=== PATIENT | female | born 1935 | race Caucasian/White ===

== ENCOUNTER → 2019-08-19 09:30 | Outpatient (CLI) | payer MEDICARE, MEDICAID, SELFPAY ==
--- NOTE | 2019-08-19 09:51 | XR_ITS ---
PROCEDURE: XR KNEE RT 3V CLINICAL INDICATION: right knee pain COMPARISON: No exams were available for comparison FINDINGS: Are severe osteoarthritic changes of the medial compartment and patellofemoral joint with mild osteoarthritis of the lateral compartment. There is mild lateral tibial translation. There are scattered rounded small calcific densities about the knee anteriorly consistent with phleboliths. Arterial calcification noted IMPRESSION: Osteoarthritic changes as described above Dictated by: Pan Campbell MD 08/19/2019 18:55 Electronically signed by Pan Campbell MD in [place] 08/19/2019 18:55
--- NOTE | 2019-08-19 09:51 | XR_ITS ---
PROCEDURE: XR KNEE LT 3V CLINICAL INDICATION: left knee pain COMPARISON: XR KNEE RT 3V from 08/19/2019 FINDINGS: No fracture or dislocation. No lytic or blastic change. There is normal mineralization. There are severe osteoarthritic changes of the patellofemoral joint and moderate to severe osteoarthritic changes of the medial compartment with mild osteoarthritis of the lateral compartment. Central subcortical lucency is present with slightly sclerotic margin at the proximal tibia in the inner spinous region and may be related to an area osteochondrosis. MRI or CT may confirm. Other findings:None. IMPRESSION: Moderate to severe osteoarthritic change with possible osteochondrosis of the proximal tibia in the interspinous region Dictated by: Pan Campbell MD 08/19/2019 18:57 Electronically signed by Pan Campbell MD in [facility] 08/19/2019 18:57
== END ==
PROVIDERS: PCP Family Medicine; Visit Provider Orthopaedic Surgery
DX: M25.561 Pain in right knee (principal); M25.562 Pain in left knee
CPT/HCPCS: 73562

== ENCOUNTER → 2019-09-12 08:40 | Outpatient (CLI) | payer MEDICARE, MEDICAID, SELFPAY ==
--- NOTE | 2019-09-12 08:49 | XR_ITS ---
PROCEDURE: XR SHOULDER LT MIN 2V CLINICAL INDICATION: left shoulder pain COMPARISON: No exams were available for comparison FINDINGS: There are mild osteoarthritic changes of the glenohumeral joint. There is mild subacromial stenosis. No fracture or dislocation. No lytic or blastic change. Cardiac pacemaker device is present. IMPRESSION: Minimal osteoarthritic change of the glenohumeral joint Dictated by: Pan Campbell MD 09/12/2019 13:06 Electronically signed by Pan Capmbell MD in [place] 09/12/2019 13:06
--- NOTE | 2019-09-12 08:49 | XR_ITS ---
PROCEDURE: XR SHOULDER RT MIN 2V CLINICAL INDICATION: right shoulder pain COMPARISON: No exams were available for comparison FINDINGS: There are mild osteoarthritic changes of the acromioclavicular and glenohumeral joint. There is mild spurring at the AC joint projecting superiorly with mild subacromial stenosis. No fracture or dislocation. No lytic or blastic change. IMPRESSION: Mild osteoarthritis of the AC joint and glenohumeral joint with mild subacromial stenosis Dictated by: Pan Campbell MD 09/12/2019 13:06 Electronically signed by Pan Campbell MD in [place] 09/12/2019 13:06
== END ==
PROVIDERS: PCP Family Medicine; Visit Provider Orthopaedic Surgery
DX: M25.511 Pain in right shoulder (principal); M25.512 Pain in left shoulder
CPT/HCPCS: 73030

== ENCOUNTER 2019-11-26 17:30 | Emergency (ER) | payer MEDICARE, MEDICAID, SELFPAY ==
[2019-11-26] VITALS (8 sets, daily range): BP systolic 98–132; BP diastolic 51–85; PULSE 77–101; RESP 16–24; TEMP 36.6–36.9; O2SAT 97–99; BMI 31.8
--- NOTE | 2019-11-26 17:38 | HMH.EDGENADL ---
ED Disposition Clinical Impression: Diffuse lymphadenopathy Dyspnea Qualifiers: Dyspnea type: shortness of breath Qualified Code(s): R06.02 - Shortness of breath Disposition: Xfer SNF Condition on Discharge: Fair Instructions: DI for Shortness of Breath Additional Instructions: Follow-up with Dr. Ambrose and with Dr. Garcia. Call tomorrow. Continue oxygen. Measure pulse oximetry twice daily. Contact physician if pulse ox is below 90%. Referrals: Provider,Referral, MD [Primary Care Provider] - - Critical Care Critical Care Time: No Attestation: On 11/26/19, the high probability of a clinically significant, sudden or life threatening deterioration of the following system(s) required my full and direct attention, intervention and personal management. The time I documented below is in addition to time spent performing reported procedures but includes the following listed in this critical care notation. Medical Decision Making - Craig Inquiry Pt receiving controlled substance: No Vital Signs: 11/26/19 17:30 11/26/19 17:55 11/26/19 18:14 Temperature 98.4 F Temperature Source Oral Pulse Rate [Right Radial] 101 H 91 H Respiratory Rate 24 24 Blood Pressure [Right Arm] 132/68 115/66 Blood Pressure Mean [Right Arm] 89 82 Blood Pressure Source [Right Arm] Automatic Cuff Automatic Cuff Blood Pressure Position [Right Arm] Sitting Sitting 02 Sat by Pulse Oximetry 97 97 98 Oxygen Delivery Method Nasal Cannula Nasal Cannula Nasal Cannula Oxygen Flow Rate (LPM) 3 3 3 11/26/19 18:28 Temperature Temperature Source Pulse Rate [Right Radial] 90 Respiratory Rate Blood Pressure [Right Arm] 105/56 L Blood Pressure Mean [Right Arm] 72 Blood Pressure Source [Right Arm] Automatic Cuff Blood Pressure Position [Right Arm] Sitting 02 Sat by Pulse Oximetry 98 Oxygen Delivery Method Nasal Cannula Oxygen Flow Rate (LPM) 3 - Lab Data Lab Results 11/26/19 17:59: Urine Color Yellow, Urine Appearance Clear, Urine pH 5.5, Ur Specific [place] 1.020, Urine Protein Negative, Urine Glucose (UA) Negative, Urine Ketones Negative, Urine Blood Negative, Urine Nitrate Negative, Urine Bilirubin Negative, Urine Urobilinogen 0.2, Ur Leukocyte Esterase Negative, Urine WBC Occasional, Ur Squamous Epith Cells Occasional, Urine Bacteria Trace 11/26/19 18:03: WBC 4.2 L, RBC 4.03 L, Hgb 11.4 L, Hct 37.1, MCV 92.1, MCH 28.2, MCHC 30.6 L, RDW 18.6 H, Plt Count 93 L, MPV 9.7, Neut % (Auto) 55.9, Lymph % (Auto) 30.8, [place] % (Auto) 8.1, Eos % (Auto) 3.3, Baso % (Auto) 1.9, Neut # (Auto) 2.4, Lymph # (Auto) 1.3, [place] # (Auto) 0.3, Eos # (Auto) 0.1, Baso # (Auto) 0.1 11/26/19 18:03: Sodium 138, Potassium 4.5, Chloride 104, Carbon Dioxide 29, Anion Gap 9.5, BUN 18 H, Creatinine 0.90, Estimated Creat Clear 61, Estimated GFR 60, Est GFR ( Amer) 72, Glucose 131 H, Calcium 9.3, Total Bilirubin 0.7, AST 35, ALT 12, Alkaline Phosphatase 150 H, Total Protein 6.8, Albumin 3.6, Globulin 3.2, Albumin/Globulin Ratio 1.1 11/26/19 18:03: Troponin I < 0.01, NT-Pro-B Natriuret Pep 5250 H Result diagrams: 11/26/19 18:03 11/26/19 18:03 Orders (Tests/Meds): ED MEDICATIONS Discontinued Medications Generic Name Dose Route Start Last Admin Trade Name Freq PRN Reason Stop Dose Admin Ioversol 60 ml 11/26/19 19:29 Rad-Optiray 350 100ml Vial IV 11/26/19 19:30 ONCE ONE Protocol Sodium Chloride 10 ml 11/26/19 19:29 Rad-Saline Flush 10ml Syringe IV 11/26/19 19:30 ONCE ONE Sodium Chloride 50 ml 11/26/19 19:29 Rad-Ns 50ml Vial IV 11/26/19 19:30 ONCE ONE ORDERS Category Date Time Status CTA Chest [CT angio chest] Stat Cat Scan 11/26/19 18:39 Taken XR chest portable Stat Exams 11/26/19 17:44 Taken Troponin I Q3H Lab 11/26/19 21:00 Ordered Troponin I Q3H Lab 11/27/19 00:00 Ordered - Radiology Data #1 Image(s): Chest Image Reviewed: Yes I reviewed the patient's radiology image Small r
--- NOTE | 2019-11-26 17:44 | XR_ITS ---
PROCEDURE: XR CHEST PORTABLE CLINICAL HISTORY: SOA, shortness of air, shortness of breath COMPARISON: CT ANGIO CHEST from 11/26/2019 FINDINGS: Mild cardiomegaly without failure. There has been a prior median sternotomy with mitral valve replacement. There is mild prominence of the mediastinum. Bipolar pacemaker is present from left subclavian approach. Blunting of the right CP angle consistent with small effusion with increased density in the right lung base suggesting infiltrate or atelectatic change. No acute bony abnormalities. IMPRESSION: 1. Small right effusion with right basilar airspace disease. 2. Cardiomegaly with mildly prominent mediastinum, consider CT for further evaluation. Dictated by: Pan Campbell MD 11/27/2019 06:06 Electronically signed by Pan Campbell MD in [place] 11/27/2019 06:06
--- NOTE | 2019-11-26 17:54 | PC.NURSE ---
Rad at [facility]
[2019-11-26 18:05] LABS: Microscopic, Urine URINE MICROSCOPIC (MICROSCOPIC)
[2019-11-26 18:07] LABS: Appearance,Urine CLEAR (Clear); Bilirubin,Urine Negative (Negative); Blood, Urine Negative (Negative); Color,Urine YELLOW (Yellow); Glucose,Urine (UA) Negative (Negative); Ketones,Urine Negative (Negative); Leukocyte Esterase,Urine Negative (Negative); Nitrate,Urine Negative (Negative); PH,Urine 5.5 (5.0-8.5); Protein,Urine Negative (Negative); Urobilinogen,Urine 0.2 EU/dl (0.2)
--- NOTE | 2019-11-26 18:10 | ECG_ITS ---
APPROVED REPORT Exam: Resting ECG HR:93 bpm ECG Measurements Heart Rate 93 AXES QRSd 116 QRS 37 QT 358 T -29 QTc 445 <Conclusion> Undetermined rhythm Incomplete right bundle branch block Nonspecific ST and T wave abnormality Abnormal ECG Electronically signed by : Robert Gonzalez, 11/28/2019 06:34:32
[2019-11-26 18:11] LABS: Basophils # 0.1 K/mm3 (0-0.2); Basophils % 1.9 % (0.1-2.0); Eosinophils # 0.1 K/mm3 (0.0-0.4); Eosinophils % 3.3 % (0.1-12.0); Hematocrit 37.1 % (37.0-47.0); Hemoglobin 11.4 g/dL (12.2-16.2); Lymphocytes # 1.3 K/mm3 (0.7-4.5); Lymphocytes % 30.8 % (10-50); Mean Corpuscular HGB Conc 30.6 g/dL (31.8-35.4); Mean Corpuscular Hemoglobin 28.2 pg (27.0-31.2); Mean Corpuscular Volume 92.1 fl (81-99); Mean Platelet Volume 9.7 fl (7.4-10.4); Monocytes # 0.3 K/mm3 (0.1-1.0); Monocytes % 8.1 % (1.7-9.3); Neutrophils # 2.4 K/mm3 (1.8-7.8); Neutrophils % 55.9 % (37.0-80.0); Platelet Count 93 K/mm3 (142-424); Red Blood Count 4.03 M/mm3 (4.20-5.40); Red Cell Distribution Width 18.6 % (11.5-17.5); White Blood Count 4.2 K/mm3 (4.8-10.8)
[2019-11-26 18:18] LABS: Chloride 104 mmol/L (98-107); Potassium 4.5 mmoL/L (3.5-5.1); Sodium 138 mmol/L (136-145)
[2019-11-26 18:18] LABS: Squamous Epithelial Cell,Urine Occasional #/hpf (0-5); WBC,Urine Occasional #/hpf (0-3)
[2019-11-26 18:19] LABS: Bacteria,Urine Trace /lpf
[2019-11-26 18:20] LABS: Alanine Aminotransferase 12 U/L (12-78); Aspartate Amino Transferase 35 U/L (14-36); Blood Urea Nitrogen 18 mg/dl (7-17); Creatinine Clearance Estimated 61 mL/min (50-200); Estimated Glomerular Filt Rate 60 ml/min (>60); GFR (African American) 72 ML/MIN (>60)
[2019-11-26 18:21] LABS: Albumin Level 3.6 g/dl (3.5-5.0); Albumin/Globulin Ratio 1.1 (1.1-1.8); Alkaline Phosphatase 150 U/L (38-126); Anion Gap 9.5 mEq/L (5-15); Bilirubin,Total 0.7 mg/dl (0.2-1.3); Calcium 9.3 mg/dl (8.4-10.2); Carbon Dioxide 29 mmol/L (22.0-30.0); Globulin 3.2 g/dL (1.3-3.2); Glucose 131 mg/dl (74-100); Total Protein,Serum 6.8 g/dl (6.3-8.2)
[2019-11-26 18:29] LABS: NT Pro Brain Natriuretic Pep. 5250 pg/mL (0-450)
--- NOTE | 2019-11-26 18:39 | CT_ITS ---
PROCEDURE: CT ANGIO CHEST CLINCIAL INDICATION: soa Shortness of air COMPARISON: No exams were available for comparison TECHNIQUE: IV Contrast: 70ML OPTIRAY 350 Axial images obtained with sagittal and coronal reformats. All CT scans at the facility use one or more dose reduction, viz: automated exposure control, ma/kV adjustment per patient size (including targeted exams where dose is matched to indication, i.e. head), or iterative reconstruction technique. FINDINGS: HEART AND MEDIASTINAL STRUCTURES: There is extensive adenopathy in both axilla, mediastinum, supraclavicular region, and [place]. There is enlargement of the main pulmonary artery and right and left main pulmonary artery. No evidence of pulmonary embolus, aortic aneurysm, or aortic dissection. Prior stenotic me with mitral valve replacement LUNGS AND PLEURAL SPACES: There is a small right pleural effusion with right lower lobe atelectatic changes. There is some mild atelectatic changes along the major fissure in the right upper lobe. There is trace left-sided effusion with minimal left basilar atelectasis he BONY STRUCTURES: There are degenerative changes in the thoracic spine. There are mild wedge compression changes of T8 and T9 age indeterminate. UPPER ABDOMEN: Splenomegaly. There is a small amount of ascites with minimal perihepatic fluid noted. There is some subcutaneous edema noted. Edematous changes are noted in the portal area she ADDITIONAL FINDINGS: No other significant abnormalities. IMPRESSION: 1. No evidence of pulmonary embolus 2. Extensive adenopathy which may be due to lymphoma or metastatic disease. 3. Bilateral effusions right larger than left with atelectatic changes in both lower lobes right greater than left with small amount of perihepatic fluid and generalized subcutaneous edema 4. Age indeterminate compression changes of T8-T9 Dictated by: Pan Campbell MD 11/27/2019 09:10 Electronically signed by Pan Campbell MD in [place] 11/27/2019 09:10
--- NOTE | 2019-11-26 18:39 | PC.NURSE ---
rad notified of CT order
[2019-11-26 18:45] LABS: Troponin I < 0.01 ng/ml (0.00-0.034)
--- NOTE | 2019-11-26 18:59 | PC.NURSE ---
report given to dominickrn
--- NOTE | 2019-11-26 20:36 | PC.NURSE ---
received phone call from dr barillas courtesy of [facility] [place]
--- NOTE | 2019-11-26 22:00 | PC.NURSE ---
Mary Jane spoke with [facility] who stated they didnt want to take pt transfer. [facility] contacted to take transfer
== END 2019-11-26 22:36 ==
PROVIDERS: Emergency Provider Emergency Medicine
DX: R06.02 Shortness of breath (principal); R59.1 Generalized enlarged lymph nodes; I50.9 Heart failure, unspecified; I48.91 Unspecified atrial fibrillation; F41.8 Other specified anxiety disorders; E11.9 Type 2 diabetes mellitus without complications; K21.9 Gastro-esophageal reflux disease without esophagitis; E78.5 Hyperlipidemia, unspecified; Z95.1 Presence of aortocoronary bypass graft; Z90.49 Acquired absence of other specified parts of digestive tract; Z96.641 Presence of right artificial hip joint
CPT/HCPCS: 71045; 71275; 80053; 81001; 83880; 84484; 85025; 93005; 99284

== ENCOUNTER 2020-01-09 02:33 | Emergency (ER) | payer MEDICARE, MEDICAID, SELFPAY ==
[2020-01-09] VITALS (12 sets, daily range): BP systolic 96–115; BP diastolic 49–76; PULSE 85–133; RESP 16–24; TEMP 36.6–36.9; O2SAT 95–99; BMI 29.5
[2020-01-09 02:57] LABS: ABG Base Excess 4.5 mmol/L (-2.4-2.3); ABG HCO3 28.9 mmhg (22.0-26.0); ABG Oxygen Saturation 89 % (90-100); ABG PCO2 44.8 mmhg (35.0-45.0); ABG PH 7.43 mmol/L (7.35-7.45); ABG PO2 56.9 mmhg (80-100); ABG TCO2 30.2 mmhg (23-27)
[2020-01-09 02:59] LABS: Basophils % 0.7 % (0.1-2.0); Eosinophils # 0.1 K/mm3 (0.0-0.4); Eosinophils % 1.5 % (0.1-12.0); Hemoglobin 10.8 g/dL (12.2-16.2); Lymphocytes # 2.1 K/mm3 (0.7-4.5); Lymphocytes % 36.5 % (10-50); Mean Corpuscular HGB Conc 31.7 g/dL (31.8-35.4); Mean Corpuscular Volume 97.5 fl (81-99); Mean Platelet Volume 8.5 fl (7.4-10.4); Monocytes # 0.4 K/mm3 (0.1-1.0); Monocytes % 6.8 % (1.7-9.3); Neutrophils # 3.1 K/mm3 (1.8-7.8); Neutrophils % 54.5 % (37.0-80.0); Platelet Count 76 K/mm3 (142-424); Red Blood Count 3.49 M/mm3 (4.20-5.40); Red Cell Distribution Width 18.6 % (11.5-17.5); White Blood Count 5.7 K/mm3 (4.8-10.8)
[2020-01-09 03:06] LABS: Allen's Test Acceptable; Oxygen 28% %; Source Left Radial
[2020-01-09 03:15] LABS: Appearance,Urine CLEAR (Clear); Bilirubin,Urine Negative (Negative); Blood, Urine Negative (Negative); Color,Urine YELLOW (Yellow); Glucose,Urine (UA) Negative (Negative); Ketones,Urine Negative (Negative); Leukocyte Esterase,Urine Negative (Negative); Microscopic, Urine URINE MICROSCOPIC (MICROSCOPIC); Nitrate,Urine Negative (Negative); PH,Urine 5.5 (5.0-8.5); Protein,Urine Negative (Negative); Specific Gravity, Urine 1.015 (1.005-1.030); Urobilinogen,Urine 0.2 EU/dl (0.2)
[2020-01-09 03:16] LABS: Alanine Aminotransferase 8 U/L (12-78); Albumin Level 3.6 g/dl (3.5-5.0); Alkaline Phosphatase 180 U/L (38-126); Anion Gap 8.2 mEq/L (5-15); Aspartate Amino Transferase 40 U/L (14-36); Bilirubin,Total 0.6 mg/dl (0.2-1.3); Blood Urea Nitrogen 28 mg/dl (7-17); Calcium 9.6 mg/dl (8.4-10.2); Carbon Dioxide 38 mmol/L (22.0-30.0); Chloride 96 mmol/L (98-107); Creatinine Clearance Estimated 50 mL/min (50-200); Estimated Glomerular Filt Rate 43 ml/min (>60); GFR (African American) 52 ML/MIN (>60); Globulin 3.6 g/dL (1.3-3.2); Glucose 116 mg/dl (74-100); Lipase 64 U/L (23-300); Potassium 4.2 mmoL/L (3.5-5.1); Sodium 138 mmol/L (136-145); Total Protein,Serum 7.2 g/dl (6.3-8.2)
[2020-01-09 03:16] LABS: Bacteria,Urine Trace /lpf; WBC,Urine Occasional #/hpf (0-3)
--- NOTE | 2020-01-09 03:16 | ECG_ITS ---
APPROVED REPORT Exam: Resting ECG HR:131 bpm ECG Measurements Heart Rate 131 AXES QRSd 116 QRS 69 QT 384 T -7 QTc 567 <Conclusion> Supraventricular tachycardia with fusion complexes Nonspecific ST and T wave abnormality Abnormal ECG Electronically signed by : Robert Gonzalez, 01/12/2020 12:03:19
[2020-01-09 03:17] LABS: Amylase < 30 U/L (30-110)
--- NOTE | 2020-01-09 03:18 | HMH.EDSOB ---
ED Disposition Clinical Impression: Congestive heart failure Qualifiers: Heart failure type: unspecified Heart failure chronicity: acute on chronic Qualified Code(s): I50.9 - Heart failure, unspecified Disposition: Home, Self-Care Condition on Discharge: Good Instructions: DI for Shortness of Breath Additional Instructions: resume orders at [facility] and see dr dozier for follow up Referrals: Provider,Referral, [Referring] - - Critical Care Critical Care Time: No Attestation: On 01/09/20, the high probability of a clinically significant, sudden or life threatening deterioration of the following system(s) required my full and direct attention, intervention and personal management. The time I documented below is in addition to time spent performing reported procedures but includes the following listed in this critical care notation. Medical Decision Making - Medical Records Medical records reviewed: Yes: I reviewed the patient's medical records. - Craig Inquiry Pt receiving controlled substance: No Vital Signs: 01/09/20 02:54 01/09/20 03:11 01/09/20 04:00 Temperature 97.9 F Temperature Source Oral Pulse Rate [Right Radial] 132 H 85 Pulse Rate [Right] 133 H Respiratory Rate 20 Blood Pressure [Right Arm] 109/57 L 108/49 L 111/50 L Blood Pressure Mean [Right Arm] 74 68 70 Blood Pressure Source [Right Arm] Automatic Cuff Automatic Cuff Automatic Cuff Blood Pressure Position [Right Arm] Supine Supine Supine 02 Sat by Pulse Oximetry 95 96 99 Oxygen Delivery Method Nasal Cannula Nasal Cannula Nasal Cannula Oxygen Flow Rate (LPM) 2 2 2 01/09/20 04:04 01/09/20 05:00 01/09/20 05:30 Temperature 98.5 F 98.3 F Temperature Source Oral Oral Pulse Rate [Right Radial] 131 H 131 H Pulse Rate [Right] Respiratory Rate 18 16 Blood Pressure [Right Arm] 114/64 110/56 L Blood Pressure Mean [Right Arm] 80 74 Blood Pressure Source [Right Arm] Automatic Cuff Automatic Cuff Blood Pressure Position [Right Arm] Supine Supine 02 Sat by Pulse Oximetry 98 96 Oxygen Delivery Method Nasal Cannula Nasal Cannula Oxygen Flow Rate (LPM) 2 2 01/09/20 06:00 01/09/20 07:00 Temperature Temperature Source Pulse Rate [Right Radial] 131 H 129 H Pulse Rate [Right] Respiratory Rate 18 18 Blood Pressure [Right Arm] 111/61 107/64 L Blood Pressure Mean [Right Arm] 77 78 Blood Pressure Source [Right Arm] Automatic Cuff Automatic Cuff Blood Pressure Position [Right Arm] Supine Supine 02 Sat by Pulse Oximetry 97 98 Oxygen Delivery Method Nasal Cannula Nasal Cannula Oxygen Flow Rate (LPM) 2 2 - Lab Data Lab results reviewed: Yes: I reviewed the patient's lab results. Lab Results 01/09/20 02:40: Specimen Source Left radial, O2 % 28%, ABG pH 7.43, ABG pCO2 44.8, ABG pO2 56.9 L, ABG HCO3 28.9 H, ABG Total CO2 30.2 H, ABG O2 Saturation 89 L, ABG Base Excess 4.5 H, Pan Test Acceptable 01/09/20 02:43: WBC 5.7, RBC 3.49 L, Hgb 10.8 L, Hct 34.0 L, MCV 97.5, MCH 31.0, MCHC 31.7 L, RDW 18.6 H, Plt Count 76 L, MPV 8.5, Neut % (Auto) 54.5, Lymph % (Auto) 36.5, [place] % (Auto) 6.8, Eos % (Auto) 1.5, Baso % (Auto) 0.7, Neut # (Auto) 3.1, Lymph # (Auto) 2.1, [place] # (Auto) 0.4, Eos # (Auto) 0.1, Baso # (Auto) 0.0 01/09/20 02:43: Sodium 138, Potassium 4.2, Chloride 96 L, Carbon Dioxide 38 H, Anion Gap 8.2, BUN 28 H, Creatinine 1.20 H, Estimated Creat Clear 50, Estimated GFR 43 L, Est GFR ( Amer) 52 L, Glucose 116 H, Calcium 9.6, Total Bilirubin 0.6, AST 40 H, ALT 8 L, Alkaline Phosphatase 180 H, Troponin I < 0.01, NT-Pro-B Natriuret Pep 4600 H, Total Protein 7.2, Albumin 3.6, Globulin 3.6 H, Albumin/Globulin Ratio 1.0 L, Amylase < 30 L, Lipase 64 01/09/20 02:43: Lactate 1.4 01/09/20 03:01: Urine Color Yellow, Urine Appearance Clear, Urine pH 5.5, Ur Specific [place] 1.015, Urine Protein Negative, Urine Glucose (UA) Negative, Urine Ketones Negative, Urine Blood Negative, Urine Nitrate Negative, Urine Bilirubin Negative, Urine Urobilinoge
[2020-01-09 03:26] LABS: Lactic Acid 1.4 mmol/L (0.7-2.1)
[2020-01-09 03:28] LABS: NT Pro Brain Natriuretic Pep. 4600 pg/mL (0-450)
--- NOTE | 2020-01-09 03:36 | XR_ITS ---
PROCEDURE: XR CHEST PORTABLE CLINICAL HISTORY: soa COMPARISON: XR CHEST PORTABLE from 11/26/2019 CT ANGIO CHEST from 11/26/2019 FINDINGS: There is a left basilar infiltrate small right pleural effusion, cardiomegaly, median sternotomy and mitral valvular prosthesis as well as a pacemaker is again noted. Heart is enlarged and soft tissues are intact IMPRESSION: Status post OHS, cardiomegaly, small right pleural effusion, left basilar infiltrate Dictated by: Cliff Alvarez 01/09/2020 08:10 Electronically signed by Cliff Alvarez in [place] 01/09/2020 08:10
[2020-01-09 03:44] LABS: Troponin I < 0.01 ng/ml (0.00-0.034)
--- NOTE | 2020-01-09 06:14 | PC.NURSE ---
updated [facility].
--- NOTE | 2020-01-09 06:30 | CA_ITS ---
APPROVED REPORT Bilateral Lower Extremity Venous Study for [employer]: CT Indications swelling Risk Factors Obesity Vein Imaging CFV (R): compressive, spontaneous, phasic, augmentation SFJ (R): compressive, spontaneous, phasic, augmentation FEM (R): compressive, spontaneous, phasic, augmentation POP (R): compressive, spontaneous, phasic, augmentation DFV (R): compressive, spontaneous, phasic, augmentation PTV (R): compressive, spontaneous, phasic, augmentation GSV (R): compressive, spontaneous, phasic, augmentation SSV (R): Not Visualized Peroneals (R):Not Visualized GAS (R): Not Visualized CFV (L): compressive, spontaneous, phasic, augmentation SFJ (L): compressive, spontaneous, phasic, augmentation FEM (L): compressive, spontaneous, phasic, augmentation POP (L): compressive, spontaneous, phasic, augmentation DFV (L): compressive, spontaneous, phasic, augmentation PTV (L): compressive, spontaneous, phasic, augmentation GSV (L): compressive, spontaneous, phasic, augmentation SSV (L): Not Visualized Peroneals (L):Not Visualized GAS (L): Not Visualized Findings Bilateral venous negative for DVT/SVT. Vessels compressible. Subq edema TDE due to body habitus and edema. Mildly prominent left inguinal nodes Conclusion No evidence of DVT or superficial thrombophlebitis in the veins scanned of the right lower extremity. No evidence of DVT or superficial thrombophlebitis in the veins scanned of the left lower extremity. Electronically signed by : Pan Campbell MD 01/12/2020 16:45:18
[2020-01-09 06:55] LABS: Troponin I < 0.01 ng/ml (0.00-0.034)
--- NOTE | 2020-01-09 07:43 | PC.NURSE ---
after receiving 2.5 mg metoprol tartate HR 112 b/p 111/55
--- NOTE | 2020-01-09 08:05 | PC.NURSE ---
report called to SHANTI Crump at [facility]
--- NOTE | 2020-01-09 08:07 | PC.NURSE ---
notified [facility] of transport back to alf.
--- NOTE | 2020-01-09 08:54 | PC.NURSE ---
report given to [facility]
== END 2020-01-09 08:55 | disposition home or self-care (01) ==
PROVIDERS: Emergency Provider Emergency Medicine; PCP Family Medicine
DX: I50.9 Heart failure, unspecified (principal); I48.20 Chronic atrial fibrillation, unspecified; K21.9 Gastro-esophageal reflux disease without esophagitis; E78.5 Hyperlipidemia, unspecified; Z95.0 Presence of cardiac pacemaker; Z90.49 Acquired absence of other specified parts of digestive tract; Z90.79 Acquired absence of other genital organ(s)
CPT/HCPCS: 71045; 80053; 81001; 82150; 82803; 83605; 83690; 83880; 84484; 85025; 87040; 93005; 93970; 96374; 96375; 99284